=== PATIENT | female | born 1975 | race Caucasian/White ===

== ENCOUNTER 2016-06-05 23:22 | Emergency (ER) | payer OTHER ==
[~2016-06-05] VITALS: Ht 162.6 cm; Wt 74.8 kg
--- NOTE | 2016-06-05 23:57 | ED DYSPNEA/ASTHMA COMPLAINT ---
History of Present Illness General Chief Complaint: Dyspnea (COPD, CHF, Other) Stated Complaint: DIFF BREATHING, UPPER ABD PAIN Source: patient, old records Exam Limitations: no limitations Vital Signs & Intake/Output Vital Signs & Intake/Output Vital Signs Date Time Temp Pulse Resp B/P B/P Pulse O2 O2 Flow FiO2 Mean Ox Delivery Rate 06/05 2349 97.7 69 18 123/76 100 Room Air Allergies Coded Allergies: No Known Drug Allergies (NKDA 06/05/16) Triage Note: PT TO ED C/O SOB FOR A WEEK : No Patient currently breastfeeds: No Past History Travel History Traveled to [place] past 21 day No Medical History Any Pertinent Medical History? see below for history Cardiovascular: PALPITATIONS AORTIC UNSUFFICIENCY L VENTRIC HYPERDYNAMIC Gastrointestinal: GERD, hiatal hernia, ESOPHAGEAL SPASMS Psychiatric: anxiety, depression Surgical History Surgical History: none Psychosocial History What is your primary language Vincentian Tobacco Use: Current Daily Use Daily Tobacco Use Amount/Type: => 5 Cigarettes daily ETOH Use: occasional use Illicit Drug Use: denies illicit drug use Family History Hx Contributory? No Physical Exam Physical Exam General Appearance: well developed/nourished, alert, awake Progress Plan of Care: Orders Procedure Date/time Status TROPONIN LEVEL 06/06 2347 Active D-DIMER 06/06 2347 Active XRY-PORTABLE CHEST XRAY 06/05 2329 Active LIPASE 06/05 2329 Active HUMAN BETA HCG SCREEN 06/05 2329 Active COMPREHENSIVE METABOLIC PANEL 06/05 2329 Active CBC WITHOUT DIFFERENTIAL 06/05 2329 Active AMYLASE 06/05 2329 Active EKG 06/05 2326 Active Departure Departure Condition: Stable Referrals: INDER RUDOLPH APRN (PCP/Family) Departure Forms: Customer Survey General Discharge Information grossly intact. There were no obvious focal neurologic abnormalities. Skin: No appreciable rash on exposed skin, skin is warm and dry. Psych: Mood and affect is normal, memory and judgment is normal. Progress Plan of Care: Orders Procedure Date/time Status TROPONIN LEVEL 06/058 Active D-DIMER 06/058 Active XRY-PORTABLE CHEST XRAY 06/05 2329 Active LIPASE 06/05 2329 Active HUMAN BETA HCG SCREEN 06/05 2329 Active COMPREHENSIVE METABOLIC PANEL 06/05 2329 Active CBC WITHOUT DIFFERENTIAL 06/05 2329 Active AMYLASE 06/05 2329 Active EKG 06/05 2326 Active Departure Departure Condition: Stable Referrals: INDER RUDOLPH APRN (PCP/Family) Departure Forms: Customer Survey General Discharge Information
--- NOTE | 2016-06-06 00:08 | ED DYSPNEA/ASTHMA COMPLAINT ---
History of Present Illness General Chief Complaint: Dyspnea (COPD, CHF, Other) Stated Complaint: DIFF BREATHING, UPPER ABD PAIN Source: patient, family Exam Limitations: no limitations Vital Signs & Intake/Output Vital Signs & Intake/Output Vital Signs Date Time Temp Pulse Resp B/P B/P Pulse O2 O2 Flow FiO2 Mean Ox Delivery Rate 06/05 2350 97.7 69 18 123/76 100 Room Air ED Intake and Output 06/06 0000 06/05 1200 Intake Total Output Total Balance Patient 165 lb Weight Weight Reported by Patient Measurement Method Allergies Coded Allergies: No Known Drug Allergies (NKDA 06/05/16) Triage Note: PT TO ED C/O SOB FOR A WEEK WITH CHEST HEAVINESS. SOB STARTED ONLY WHEN SUPINE, HAS BEEN WORSE FOR THE LAST FOR DAYS. TODAY FEELS SOB "ALL THE TIME" O2 SAT 100% ON RA. PAIN ACROSS UPPER ABDOMIN STARTED TODAY AND GOES TO LEFT SHOULDER BLADE. PMH OF GERD, HIATAL HERNIA, ESOPHAGEAL SPASMS, ANXIETY. DENIES COUGH, DENIES FEVERS. VSS. C/O FATIGUE FOR A MONTH AND STATES "I START YAWNING AND I CAN'TFINISH THE YAWN" Triage Nurses Notes Reviewed? yes Onset: Gradual Duration: day(s): Timing: recent history Severity: mild, moderate Activities at Onset: none Prior Episodes/Possible Cause: no prior episodes Modifying Factors: Improves With: rest. Associated Symptoms: anxiety, "I can't catch my breath" : No Patient currently breastfeeds: No HPI: 40 yo woman h/o aortic insufficiency, anxiety/depression, presents with 4 days of dyspnea, chest pain, and the sensation that "I can't catch my breath." She notes also discomfort in the lower lateral rib cage area bilaterally. She notes no swelling of her lower extremities, no recent travel, wheezing, cough, phlegm. She is otherwise well. Past History Travel History Traveled to [place] past 21 day No Medical History Any Pertinent Medical History? see below for history Cardiovascular: PALPITATIONS AORTIC UNSUFFICIENCY L VENTRIC HYPERDYNAMIC Gastrointestinal: GERD, hiatal hernia, ESOPHAGEAL SPASMS Psychiatric: anxiety, depression Surgical History Surgical History: none Psychosocial History What is your primary language Latvian Tobacco Use: Current Daily Use Daily Tobacco Use Amount/Type: => 5 Cigarettes daily ETOH Use: occasional use Illicit Drug Use: denies illicit drug use Family History Hx Contributory? No Review of Systems Review of Systems Constitutional: Reports: no symptoms. EENTM: Reports: no symptoms. Respiratory: Reports: no symptoms. Cardiovascular: Reports: no symptoms. GI: Reports: no symptoms. Genitourinary: Reports: no symptoms. Musculoskeletal: Reports: no symptoms. Skin: Reports: no symptoms. Neurological/Psychological: Reports: no symptoms. Hematologic/Endocrine: Reports: no symptoms. Immunologic/Allergic: Reports: no symptoms. All Other Systems: Reviewed and Negative Physical Exam Physical Exam General Appearance: well developed/nourished, mild distress Head: atraumatic, normal appearance Eyes: Bilateral: normal appearance. Ears, Nose, Throat: normal pharynx, normal ENT inspection Neck: normal inspection, supple, full range of motion Respiratory: normal breath sounds, no respiratory distress, quiet respiration, parasternal chest wall tenderness to palpation Cardiovascular: regular rate/rhythm, 2/6 systolic murmur Gastrointestinal: normal bowel sounds, soft, non-tender, no organomegaly Extremities: normal inspection, normal capillary refill, normal range of motion, no edema Neurologic/Psych: no motor/sensory deficits, awake, alert, oriented x 3 Skin: intact, normal color, warm/dry Core Measures ACS in differential dx? No Severe Sepsis Present: No Septic Shock Present: No Progress Differential Diagnosis: asthma, AMI, CHF, COPD, pulmonary embolism Plan of Care: Orders Procedure Date/time Status TROPONIN LEVEL 06/06 2347 Complete D-DIMER 06/06 2347 Complete LIPASE 06/05 2329 Complete HUMAN BETA HCG SCREEN 06/05 2329 Complete COMPREHENSIVE METABOLIC PANEL 06/05 2329 Complete CBC WITHOUT DIFFERENTIAL 06/05 2329 Complete AMYLASE 06/05 2329 Complete EKG 06/05 2326 Active Laboratory Tests 06/06/16 0009: Troponin I < 0.01 06/06/16 0009: Anion Gap 11, Estimated GFR > 60, BUN/Creatinine Ratio 21.7, Glucose 105 H, Calcium 9.4, Total Bilirubin 0.3, AST 22, ALT 37, Alkaline Phosphatase 78, Total Protein 6.6, Albumin 3.9, Globulin 2.7, Albumin/Globulin Ratio 1.4, Amylase 53, Lipase 153, Total Beta HCG NEGATIVE, D-Dimer < 200, CBC w Diff NO MAN DIFF REQ, RBC 4.22, MCV 92.8, MCH 31.3 H, RDW 13.1, MPV 8.0, Gran % 55.5, Lymphocytes % 34.4, Monocytes % 6.3, Eosinophils % 3.2, Basophils % 0.6, Absolute Granulocytes 6.9 H, Absolute Lymphocytes 4.3 H, Absolute Monocytes 0.8 H, Absolute Eosinophils 0.4, Absolute Basophils 0.1, PUBS MCHC 33.7 Diagnostic Imaging: Viewed by Me: Radiology Read. Discussed w/RAD: Radiology Read. CXR Impression: no acute abnormality, no infiltrates, normal size heart, normal mediastinum Initial ED EKG: none Comments: PATIENT: MAGDA DEVLIN PRESENT AGE: 40 PATIENT ACCOUNT NO: [id number] : 76 LOCATION: [facility] ORDERING PHYSICIAN: MARYELLEN OCHOA MD SERVICE DATE: 06/05/16 EXAM TYPE: RAD - XRY-PORTABLE CHEST XRAY EXAMINATION: XR PORTABLE CHEST CLINICAL INFORMATION: Dyspnea COMPARISON: None TECHNIQUE: Portable frontal view of the chest was obtained. FINDINGS: The lungs are clear with no focal consolidation. No evidence of pneumothorax, pulmonary edema, or pleural effusions. The cardiomediastinal silhouette is unremarkable. No acute osseous findings. IMPRESSION: No acute cardiopulmonary findings. DICTATED BY: MEJIA LAI MD DATE/TIME DICTATED:06/06/16146 ACTIVITY MANAGER:LORENA DATE/TIME TRANSCRIBED:06/06/16146 CONFIDENTIAL, DO NOT COPY WITHOUT APPROPRIATE AUTHORIZATION. <Electronically signed in Other Vendor System> SIGNED BY: MEJIA LAI MD 06/06/16 0151 Departure Departure Disposition: HOME OR SELF CARE Condition: Stable Clinical Impression Primary Impression: Dyspnea Secondary Impressions: Chest wall pain Referrals: INDER RUDOLPH APRN Departure Forms: Customer Survey General Discharge Information Comments 06/06/16, 2:30am.... pt resting comfortably, feeling well, trop, dimer negative, ekg,cxr benign.... pt safe for discharge... discussed at length with patient. 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 Critical Care Note Critical Care Note Critical Care Time: non-applicable
[2016-06-06 00:21] LABS: ABSOLUTE BASOPHIL COUNT 0.1 /CUMM (0.0-0.2); ABSOLUTE EOSINOPHIL COUNT 0.4 /CUMM (0.0-0.7); ABSOLUTE GRANULOCYTE CT 6.9 /CUMM (1.4-6.5); ABSOLUTE LYMPH COUNT 4.3 /CUMM (1.2-3.4); ABSOLUTE MONOCYTE COUNT 0.8 /CUMM (0.10-0.60); BASOPHIL % 0.6 % (0.0-2.0); EOSINOPHIL % 3.2 % (0-5); GRANULOCYTE % 55.5 % (42.2-75.2); HEMATOCRIT 39.2 % (37-47); MEAN CORPUSCULAR HGB 31.3 PG (27.0-31.0); MEAN CORPUSCULAR HGB CONC 33.7 G/DL (33.0-37.0); MEAN CORPUSCULAR VOLUME 92.8 FL (81.0-99.0); PLATELET COUNT 390 /CUMM (130-400); RBC DISTRIBUTION WIDTH 13.1 % (11.5-14.5); RED BLOOD CELL CT 4.22 /CUMM (4.20-5.40); WHITE BLOOD CELL COUNT 12.5 /CUMM (4.8-10.8)
--- NOTE | 2016-06-06 01:51 | RADIOLOGY REPORT ---
EXAMINATION: XR PORTABLE CHEST CLINICAL INFORMATION: Dyspnea COMPARISON: None TECHNIQUE: Portable frontal view of the chest was obtained. FINDINGS: The lungs are clear with no focal consolidation. No evidence of pneumothorax, pulmonary edema, or pleural effusions. The cardiomediastinal silhouette is unremarkable. No acute osseous findings. IMPRESSION: No acute cardiopulmonary findings.
[2016-06-06 03:17] VITALS: BP 103/50
[2016-06-06] MEDS ORDERED: LORAZEPAM1 M1 PO (03:17)
== END 2016-06-06 03:18 ==
LOC: ERH 23:22
PROVIDERS: Pediatrics
DX: R07.89 Other chest pain (principal); R06.00 Dyspnea, unspecified
CPT/HCPCS: 93005; 93010